=== PATIENT | female | born 1970 | race Caucasian/White ===

== ENCOUNTER → 2017-10-08 | Outpatient (CLI) | payer OTHER ==
[~2017-10-08] MED LIST: ASACOL400 MG PO; GOLYTELY4000 M1 GT; LINZESS145 MCG PO; MECLIZINE 25 MG25 M1 PO; MIRALAX255 GM PO; [UNRECOGNIZED DRUG - OTHER] PO
[2017-10-08 15:19] LABS: ABSOLUTE EOSINOPHILS 0.4 thou/uL (0.0-0.7); ABSOLUTE MONOCYTES 0.8 thou/uL (0.0-1.2); ABSOLUTE NEUTROPHILS 3.1 thou/uL (1.6-8.1); BASOPHILS 0.6 %; EOSINOPHILS 5.9 %; HEMATOCRIT 37.7 % (37.0-47.0); HEMOGLOBIN 12.5 gm/dL (12.0-15.0); LYMPHOCYTES 31.6 %; MCH 29.9 pg (26.0-34.0); MCHC 33.1 g/dL (28.0-37.0); MCV 90.4 fL (80.0-100.0); MONOCYTES 12.9 %; MPV 9.2 fl. (7.2-11.1); NUCLEATED RBCS 0 /100WBC; PLATELET COUNT* 220 thou/uL (150-400); RBC 4.17 mil/uL (4.20-5.00); RDW-CV 13.8 % (10.5-14.5); WBC 6.3 thou/uL (4.0-11.0)
[2017-10-08 15:24] LABS: CALCIUM 9.3 mg/dL (8.5-10.1); CREATININE 0.8 mg/dL (0.6-1.3); POTASSIUM 4.5 mmol/L (3.5-5.1); TOTAL BILIRUBIN 0.3 mg/dL (<0.1-1.0)
[2017-10-08 16:26] LABS: ESR (SEDRATE) 11 mm/hr (0-20)
[2017-10-09 16:11] LABS: HEPATITIS B SURFACE AG Negative (Negative)
== END ==
LOC: M.LAB 14:46
PROVIDERS: Nurse Practitioner Family
DX: K51.90 Ulcerative colitis, unspecified, without complications (principal)

== ENCOUNTER → 2018-07-06 | Outpatient (CLI) | payer OTHER ==
[2018-07-06 12:28] LABS: ABSOLUTE BASOPHILS 0.1 thou/uL (0.0-0.2); ABSOLUTE EOSINOPHILS 0.2 thou/uL (0.0-0.7); ABSOLUTE LYMPHOCYTES 2.9 thou/uL (0.8-5.3); ABSOLUTE MONOCYTES 0.9 thou/uL (0.0-1.2); ABSOLUTE NEUTROPHILS 2.8 thou/uL (1.6-8.1); BASOPHILS 1.1 %; EOSINOPHILS 2.8 %; HEMATOCRIT 38.5 % (37.0-47.0); HEMOGLOBIN 12.9 gm/dL (12.0-15.0); LYMPHOCYTES 41.8 %; MCH 30.3 pg (26.0-34.0); MCHC 33.4 g/dL (28.0-37.0); MCV 90.8 fL (80.0-100.0); MONOCYTES 13.6 %; MPV 10.4 fl. (7.2-11.1); NUCLEATED RBCS 0 /100WBC; PLATELET COUNT* 194 thou/uL (150-400); POLYS 40.7 %; RBC 4.24 mil/uL (4.20-5.00); RDW-CV 13.2 % (10.5-14.5)
[2018-07-06 12:41] LABS: ALBUMIN 4.2 g/dL (3.4-5.0); CALCIUM 9.1 mg/dL (8.5-10.1); CREATININE 0.8 mg/dL (0.6-1.3); POTASSIUM 4.6 mmol/L (3.5-5.1); TOTAL BILIRUBIN 0.2 mg/dL (<0.1-1.0); TOTAL PROTEIN 8.2 g/dL (6.4-8.2)
[2018-07-06 13:27] LABS: ESR (SEDRATE) 8 mm/hr (0-20)
== END ==
LOC: M.LAB 12:01
PROVIDERS: Family Medicine
DX: K51.90 Ulcerative colitis, unspecified, without complications (principal)

== ENCOUNTER → 2019-01-06 | Outpatient (CLI) | payer OTHER ==
[2019-01-06 11:13] LABS: ABSOLUTE BASOPHILS 0.1 thou/uL (0.0-0.2); ABSOLUTE EOSINOPHILS 0.2 thou/uL (0.0-0.7); ABSOLUTE LYMPHOCYTES 2.2 thou/uL (0.8-5.3); ABSOLUTE MONOCYTES 0.5 thou/uL (0.0-1.2); ABSOLUTE NEUTROPHILS 2.4 thou/uL (1.6-8.1); BASOPHILS 2.3 %; EOSINOPHILS 3.8 %; HEMATOCRIT 38.2 % (37.0-47.0); LYMPHOCYTES 40.7 %; MCH 30.7 pg (26.0-34.0); MCHC 34.2 g/dL (28.0-37.0); MONOCYTES 9.2 %; MPV 10.2 fl. (7.2-11.1); NUCLEATED RBCS 0 /100WBC; PLATELET COUNT* 192 thou/uL (150-400); RBC 4.24 mil/uL (4.20-5.00); WBC 5.3 thou/uL (4.0-11.0)
[2019-01-06 11:31] LABS: ALBUMIN 4.1 g/dL (3.4-5.0); CREATININE 0.8 mg/dL (0.6-1.3); POTASSIUM 3.8 mmol/L (3.5-5.1); TOTAL BILIRUBIN 0.5 mg/dL (<0.1-1.0); TOTAL PROTEIN 8.2 g/dL (6.4-8.2)
[2019-01-06 12:17] LABS: ESR (SEDRATE) 10 mm/hr (0-20)
== END ==
LOC: M.LAB 10:18
PROVIDERS: Physician Assistant
DX: K51.90 Ulcerative colitis, unspecified, without complications (principal); K59.09 Other constipation

== ENCOUNTER → 2019-01-13 | Outpatient (CLI) | payer OTHER | LOC: M.NUC 07:01 | DX: Z12.31 Encounter for screening mammogram for malignant neoplasm of breast (principal); K51.90 Ulcerative colitis, unspecified, without complications; K59.09 Other constipation ==

== ENCOUNTER → 2019-05-10 | Outpatient (CLI) | payer OTHER | LOC: M.RAD 16:28 | DX: R10.9 Unspecified abdominal pain (principal) ==

== ENCOUNTER → 2019-07-06 | Outpatient (CLI) | payer OTHER ==
[2019-07-06 10:45] LABS: ABSOLUTE EOSINOPHILS 0.2 thou/uL (0.0-0.7); ABSOLUTE LYMPHOCYTES 2.4 thou/uL (0.8-5.3); ABSOLUTE MONOCYTES 0.6 thou/uL (0.0-1.2); ABSOLUTE NEUTROPHILS 2.1 thou/uL (1.6-8.1); BASOPHILS 0.2 %; EOSINOPHILS 4.1 %; HEMATOCRIT 38.8 % (37.0-47.0); HEMOGLOBIN 13.3 gm/dL (12.0-15.0); MCH 31.2 pg (26.0-34.0); MCHC 34.2 g/dL (28.0-37.0); MCV 91.5 fL (80.0-100.0); MONOCYTES 11.5 %; MPV 9.7 fl. (7.2-11.1); NUCLEATED RBCS 0 /100WBC; PLATELET COUNT* 223 thou/uL (150-400); POLYS 39.2 %; RBC 4.24 mil/uL (4.20-5.00); RDW-CV 12.7 % (10.5-14.5); WBC 5.3 thou/uL (4.0-11.0)
[2019-07-06 10:58] LABS: ALBUMIN 4.1 g/dL (3.4-5.0); ALKALINE PHOSPHATASE 63 U/L (46-116); ANION GAP 7 mmol/L (7-16); BUN 12 mg/dL (7-18); CALCIUM 9.4 mg/dL (8.5-10.1); CHLORIDE 104 mmol/L (98-107); CHOLESTEROL 165 mg/dL (<200); CO2 30 mmol/L (21-32); CREATININE 0.8 mg/dL (0.6-1.3); GLUCOSE 96 mg/dL (70-99); HDL CHOLESTEROL 78 mg/dL (>40); LDL CHOLESTEROL 76 mg/dL (<100); POTASSIUM 4.5 mmol/L (3.5-5.1); SGOT 16 U/L (15-37); SGPT 22 U/L (30-65); SODIUM 141 mmol/L (136-145); TC:HDL 2.1 Ratio (Not establshd); TOTAL BILIRUBIN 0.5 mg/dL (<0.1-1.0); TOTAL PROTEIN 8.2 g/dL (6.4-8.2); TRIGLYCERIDE 56 mg/dL (<150); VLDL 11 mg/dL (<40)
[2019-07-06 11:14] LABS: SERUM ASSESSMENT Clear
== END ==
LOC: M.LAB 10:21
PROVIDERS: Family Medicine
DX: Z13.220 Encounter for screening for lipoid disorders (principal); Z51.81 Encounter for therapeutic drug level monitoring; K51.90 Ulcerative colitis, unspecified, without complications; K58.9 Irritable bowel syndrome, unspecified

== ENCOUNTER → 2019-08-16 | Outpatient (CLI) | payer OTHER | LOC: M.CT 07:32 | DX: M72.2 Plantar fascial fibromatosis (principal); M79.671 Pain in right foot; R10.84 Generalized abdominal pain; K59.00 Constipation, unspecified; R14.0 Abdominal distension (gaseous) ==

== ENCOUNTER → 2019-11-03 | Outpatient (CLI) | payer OTHER | LOC: M.MRI 11:02 | DX: R60.9 Edema, unspecified (principal) ==

== ENCOUNTER → 2020-01-09 | Outpatient (CLI) | payer OTHER ==
[2020-01-09 17:37] LABS: ABSOLUTE BASOPHILS 0.1 thou/uL (0.0-0.2); ABSOLUTE EOSINOPHILS 0.2 thou/uL (0.0-0.7); ABSOLUTE LYMPHOCYTES 3.1 thou/uL (0.8-5.3); ABSOLUTE MONOCYTES 0.8 thou/uL (0.0-1.2); ABSOLUTE NEUTROPHILS 2.3 thou/uL (1.6-8.1); EOSINOPHILS 3.8 %; HEMATOCRIT 37.3 % (37.0-47.0); HEMOGLOBIN 12.7 gm/dL (12.0-15.0); LYMPHOCYTES 47.5 %; MCH 31.5 pg (26.0-34.0); MCHC 34.1 g/dL (28.0-37.0); MCV 92.5 fL (80.0-100.0); MONOCYTES 12.3 %; MPV 10.6 fl. (7.2-11.1); NUCLEATED RBCS 0 /100WBC; PLATELET COUNT* 214 thou/uL (150-400); POLYS 35.4 %; RBC 4.04 mil/uL (4.20-5.00); RDW-CV 13.1 % (10.5-14.5); WBC 6.5 thou/uL (4.0-11.0)
[2020-01-09 17:55] LABS: PROTIME 10.3 Seconds (9.20-11.50)
[2020-01-09 17:59] LABS: ALBUMIN 4.2 g/dL (3.4-5.0); CALCIUM 8.6 mg/dL (8.5-10.1); CREATININE 0.8 mg/dL (0.6-1.3); POTASSIUM 3.5 mmol/L (3.5-5.1); TOTAL BILIRUBIN 0.2 mg/dL (<0.1-1.0); TOTAL PROTEIN 8.1 g/dL (6.4-8.2)
[2020-01-09 18:54] LABS: ESR (SEDRATE) 5 mm/hr (0-20)
[2020-01-11 10:08] LABS: HEPATITIS B SURFACE AG Negative (Negative)
[2020-01-12 10:08] LABS: ANA INTERPRETATION Negative (Negative)
== END ==
LOC: M.LAB 16:55
PROVIDERS: ATTEND Internal Medicine Gastroenterology
DX: Z11.59 Encounter for screening for other viral diseases (principal); K51.90 Ulcerative colitis, unspecified, without complications; R53.82 Chronic fatigue, unspecified; M25.50 Pain in unspecified joint; T14.8XXA Other injury of unspecified body region, initial encounter; Z79.899 Other long term (current) drug therapy

== ENCOUNTER → 2020-02-29 | Outpatient (CLI) | payer OTHER ==
[2020-02-29 10:21] LABS: ABSOLUTE BASOPHILS 0.1 thou/uL (0.0-0.2); ABSOLUTE EOSINOPHILS 0.2 thou/uL (0.0-0.7); ABSOLUTE LYMPHOCYTES 1.9 thou/uL (0.8-5.3); ABSOLUTE MONOCYTES 0.6 thou/uL (0.0-1.2); BASOPHILS 1.4 %; EOSINOPHILS 4.9 %; HEMATOCRIT 38.5 % (37.0-47.0); HEMOGLOBIN 13.3 gm/dL (12.0-15.0); LYMPHOCYTES 39.7 %; MCH 31.7 pg (26.0-34.0); MCHC 34.5 g/dL (28.0-37.0); MCV 91.9 fL (80.0-100.0); MONOCYTES 12.4 %; MPV 10.1 fl. (7.2-11.1); NUCLEATED RBCS 0 /100WBC; PLATELET COUNT* 235 thou/uL (150-400); POLYS 41.6 %; RBC 4.19 mil/uL (4.20-5.00); RDW-CV 13.1 % (10.5-14.5); WBC 4.9 thou/uL (4.0-11.0)
[2020-02-29 10:35] LABS: CALCIUM 8.7 mg/dL (8.5-10.1); CREATININE 0.8 mg/dL (0.6-1.3)
== END ==
LOC: M.LAB 10:07
PROVIDERS: ATTEND Surgery
DX: Z01.810 Encounter for preprocedural cardiovascular examination (principal)

== ENCOUNTER → 2020-04-13 | Outpatient (CLI) | payer OTHER ==
[2020-04-13 21:06] LABS: TESTOSTERONE 4 ng/dL (8-48)
== END ==
LOC: M.LAB 12:01
DX: N95.1 Menopausal and female climacteric states (principal)

== ENCOUNTER 2020-05-03 14:24 | Emergency (ER) | payer OTHER ==
[~2020-05-03] VITALS: Ht 165.1 cm; Wt 59.0 kg
[2020-05-03 14:37] VITALS: BP 136/77
[2020-05-03] MEDS ORDERED: SIMPONI100 MG/11 (14:41)
[2020-05-03] MEDS ORDERED: PHENERGAN 25 MG25 M1 PO (15:12)
[2020-05-03] MEDS ORDERED: BUTALB-APAP-CA1 EACH PO (15:12)
== END 2020-05-03 15:21 | disposition home or self-care (01) ==
LOC: M.ERS 14:24
DX: B34.9 Viral infection, unspecified (principal); Z20.828 Contact with and (suspected) exposure to other viral communicable diseases; R11.2 Nausea with vomiting, unspecified; Z88.2 Allergy status to sulfonamides

== ENCOUNTER → 2020-06-29 | Outpatient (CLI) | payer OTHER ==
[~2020-06-29] MED LIST changes: +BUTALB-APAP-CA1 EACH PO; +PHENERGAN 25 MG25 M1 PO; +SIMPONI100 MG/11
== END ==
LOC: M.NUC 07:00
PROVIDERS: ATTEND Internal Medicine Gastroenterology
DX: R11.10 Vomiting, unspecified (principal)

== ENCOUNTER → 2020-11-22 | Outpatient (CLI) | payer OTHER | LOC: M.RAD 08:57 | PROVIDERS: ATTEND Family Medicine | DX: K59.00 Constipation, unspecified (principal); K51.90 Ulcerative colitis, unspecified, without complications ==

== ENCOUNTER → 2021-02-20 | Outpatient (CLI) | payer OTHER ==
[2021-02-20 16:12] LABS: ABSOLUTE BASOPHILS 0.1 thou/uL (0.0-0.2); ABSOLUTE EOSINOPHILS 0.2 thou/uL (0.0-0.7); ABSOLUTE MONOCYTES 0.5 thou/uL (0.0-1.2); ABSOLUTE NEUTROPHILS 3.1 thou/uL (1.6-8.1); BASOPHILS 1.4 %; EOSINOPHILS 3.1 %; HEMATOCRIT 38.4 % (37.0-47.0); HEMOGLOBIN 13.4 gm/dL (12.0-15.0); LYMPHOCYTES 43.6 %; MCH 31.7 pg (26.0-34.0); MCHC 34.8 g/dL (28.0-37.0); MCV 91.2 fL (80.0-100.0); MONOCYTES 7.6 %; MPV 10.5 fl. (7.2-11.1); NUCLEATED RBCS 0 /100WBC; PLATELET COUNT* 194 thou/uL (150-400); POLYS 44.3 %; RBC 4.21 mil/uL (4.20-5.00); RDW-CV 13.2 % (10.5-14.5); WBC 6.9 thou/uL (4.0-11.0)
[2021-02-20 16:32] LABS: ALBUMIN 4.5 g/dL (3.4-5.0); CALCIUM 9.4 mg/dL (8.5-10.1); CREATININE 0.8 mg/dL (0.6-1.3); POTASSIUM 3.7 mmol/L (3.5-5.1); TOTAL BILIRUBIN 0.4 mg/dL (<0.1-1.0); TOTAL PROTEIN 8.9 g/dL (6.4-8.2)
[2021-02-20 16:59] LABS: % SATURATION 24 % (20-39); IRON 83 ug/dL (50-175)
[2021-02-20 17:17] LABS: ESR (SEDRATE) 11 mm/hr (0-20)
[2021-02-21 12:07] LABS: HEPATITIS B SURFACE AG Negative (Negative)
== END ==
LOC: M.LAB 15:04
PROVIDERS: ATTEND Nurse Practitioner Adult Health
DX: R53.83 Other fatigue (principal); K51.90 Ulcerative colitis, unspecified, without complications; Z79.899 Other long term (current) drug therapy

== ENCOUNTER → 2021-03-05 | Outpatient (CLI) | payer OTHER | LOC: M.MRI 13:12 | PROVIDERS: ATTEND Family Medicine | DX: N63.13 Unspecified lump in the right breast, lower outer quadrant (principal); Z88.2 Allergy status to sulfonamides; Z88.8 Allergy status to other drugs, medicaments and biological substances; Z98.82 Breast implant status ==

== ENCOUNTER → 2021-03-06 | Outpatient (CLI) | payer OTHER | LOC: M.ULTRA 13:50 | PROVIDERS: ATTEND Family Medicine | DX: N63.13 Unspecified lump in the right breast, lower outer quadrant (principal) ==

== ENCOUNTER → 2021-03-08 | Outpatient (CLI) | payer OTHER | LOC: M.ULTRA 08:02 | PROVIDERS: ATTEND Family Medicine | DX: N63.10 Unspecified lump in the right breast, unspecified quadrant (principal); N64.4 Mastodynia ==

== ENCOUNTER → 2021-07-23 | Outpatient (CLI) | payer OTHER ==
[2021-07-23 13:32] LABS: ABSOLUTE BASOPHILS 0.1 thou/uL (0.0-0.2); ABSOLUTE EOSINOPHILS 0.2 thou/uL (0.0-0.7); ABSOLUTE LYMPHOCYTES 2.8 thou/uL (0.8-5.3); ABSOLUTE MONOCYTES 0.5 thou/uL (0.0-1.2); ABSOLUTE NEUTROPHILS 2.6 thou/uL (1.6-8.1); BASOPHILS 1.4 %; EOSINOPHILS 3.9 %; HEMATOCRIT 37.2 % (37.0-47.0); HEMOGLOBIN 12.4 gm/dL (12.0-15.0); MCH 30.7 pg (26.0-34.0); MCHC 33.4 g/dL (28.0-37.0); MCV 92.1 fL (80.0-100.0); MPV 9.2 fl. (7.2-11.1); NUCLEATED RBCS 0 /100WBC; PLATELET COUNT* 243 thou/uL (150-400); POLYS 41.7 %; RBC 4.04 mil/uL (4.20-5.00); RDW-CV 12.7 % (10.5-14.5); WBC 6.2 thou/uL (4.0-11.0)
[2021-07-23 14:40] LABS: ESR (SEDRATE) 7 mm/hr (0-20)
[2021-07-23 14:45] LABS: CHOLESTEROL 165 mg/dL (<200); CO2 29 mmol/L (21-32); HDL CHOLESTEROL 72 mg/dL (>40); TC:HDL 2.3 Ratio (Not establshd); TOTAL BILIRUBIN 0.2 mg/dL (<0.1-1.0); TOTAL PROTEIN 7.6 g/dL (6.4-8.2)
[2021-07-23 14:58] LABS: ALBUMIN 3.6 g/dL (3.4-5.0); ALKALINE PHOSPHATASE 77 U/L (46-116); ANION GAP 7 mmol/L (7-16); BUN 16 mg/dL (7-18); CALCIUM 8.8 mg/dL (8.5-10.1); CHLORIDE 105 mmol/L (98-107); CREATININE 0.8 mg/dL (0.6-1.3); GLUCOSE 94 mg/dL (70-99); LDL CHOLESTEROL 75 mg/dL (<100); POTASSIUM 4.4 mmol/L (3.5-5.1); SERUM ASSESSMENT Clear; SGOT 15 U/L (15-37); SGPT 23 U/L (30-65); SODIUM 141 mmol/L (136-145); TRIGLYCERIDE 94 mg/dL (<150); VLDL 19 mg/dL (<40)
== END ==
LOC: M.LAB 13:08
PROVIDERS: ATTEND Family Medicine
DX: Z13.220 Encounter for screening for lipoid disorders (principal); K51.90 Ulcerative colitis, unspecified, without complications; K92.1 Melena; R94.5 Abnormal results of liver function studies; R23.2 Flushing; R74.8 Abnormal levels of other serum enzymes; L65.9 Nonscarring hair loss, unspecified; R53.82 Chronic fatigue, unspecified; R19.7 Diarrhea, unspecified

== ENCOUNTER → 2021-09-11 | Outpatient (CLI) | payer OTHER ==
[2021-09-11 09:55] LABS: ABSOLUTE EOSINOPHILS 0.2 thou/uL (0.0-0.7); ABSOLUTE LYMPHOCYTES 2.3 thou/uL (0.8-5.3); ABSOLUTE MONOCYTES 0.8 thou/uL (0.0-1.2); ABSOLUTE NEUTROPHILS 2.1 thou/uL (1.6-8.1); BASOPHILS 0.6 %; EOSINOPHILS 3.4 %; HEMATOCRIT 38.8 % (37.0-47.0); HEMOGLOBIN 13.2 gm/dL (12.0-15.0); LYMPHOCYTES 42.5 %; MCH 30.7 pg (26.0-34.0); MCV 90.2 fL (80.0-100.0); MPV 10.2 fl. (7.2-11.1); NUCLEATED RBCS 0 /100WBC; PLATELET COUNT* 198 thou/uL (150-400); POLYS 38.5 %; RDW-CV 12.7 % (10.5-14.5); WBC 5.5 thou/uL (4.0-11.0)
[2021-09-11 10:11] LABS: CALCIUM 9.4 mg/dL (8.5-10.1); CREATININE 0.8 mg/dL (0.6-1.3); POTASSIUM 4.7 mmol/L (3.5-5.1)
[2021-09-11 10:13] LABS: ALBUMIN 4.1 g/dL (3.4-5.0); TOTAL BILIRUBIN 0.4 mg/dL (<0.1-1.0); TOTAL PROTEIN 7.9 g/dL (6.4-8.2)
[2021-09-11 10:58] LABS: ESR (SEDRATE) 17 mm/hr (0-20)
== END ==
LOC: M.CT 09:36
PROVIDERS: ATTEND Family Medicine
DX: R51.9 Headache, unspecified (principal); G89.29 Other chronic pain; R42 Dizziness and giddiness; H57.13 Ocular pain, bilateral

== ENCOUNTER → 2021-10-18 | Outpatient (CLI) | payer OTHER | LOC: M.CT 13:34 | PROVIDERS: ATTEND Family Medicine | DX: J43.8 Other emphysema (principal); R14.0 Abdominal distension (gaseous); R11.0 Nausea ==